=== PATIENT | female | born 1980 | race Two or more races ===

== ENCOUNTER → 2018-12-21 | Outpatient (CLI) | payer BC ==
--- NOTE | 2018-12-21 13:03 | ECHOF ---
Referral Reason:R06.02 SOB, R53.83 Fatigue, R60.0 Edema MEASUREMENTS -------- HEIGHT: 170.2 cm WEIGHT: 85.3 kg BP: 146/85 RVIDd: 2.9 cm (< 3.3) IVSd: 1.0 cm (0.6 - 1.1) LVIDd: 4.4 cm (3.9 - 5.3) LVPWd: 1.1 cm (0.6 - 1.1) IVSs: 1.6 cm LVIDs: 2.9 cm LVPWs: 1.5 cm LA Diam: 3.4 cm (2.7 - 3.8) LAESV Index (A-L): 23.12 ml/m Ao Diam: 2.8 cm (2.0 - 3.7) AV Cusp: 2.0 cm (1.5 - 2.6) MV EXCURSION: 13.818 mm (> 18.000) MV EF SLOPE: 125 mm/s (70 - 150) EPSS: 0.6 cm MV E Kan: 1.20 m/s MV DecT: 107 ms MV A Kan: 0.57 m/s MV E/A Ratio: 2.09 RAP: 5.00 mmHg RVSP: 25.60 mmHg FINDINGS -------- Resting tachycardia (HR>100bpm). This was a technically good study. The left ventricular size is normal. There is borderline concentric left ventricular hypertrophy. Overall left ventricular systolic function is normal with, an EF between 60 - 65 %. The right ventricle is normal in size. Normal LA size by volume 22+/-6 ml/m2. The right atrium is normal in size. Interatrial and interventricular septum intact. The aortic valve is trileaflet and appears structurally normal. Mild mitral regurgitation is present. Mild tricuspid regurgitation present. Right ventricular systolic pressure is normal at < 35 mmHg. Trace/mild (physiologic) pulmonic regurgitation. The aortic root size is normal. Normal inferior vena cava with normal inspiratory collapse consistent with estimated right atrial pre ssure of 5 mmHg. There is no pericardial effusion. CONCLUSIONS -------- 1. Resting tachycardia (HR>100bpm). 2. This was a technically good study. 3. The left ventricular size is normal. 4. There is borderline concentric left ventricular hypertrophy. 5. Overall left ventricular systolic function is normal with, an EF between 60 - 65 %. 6. The right ventricle is normal in size. 7. Normal LA size by volume 22+/-6 ml/m2. 8. The right atrium is normal in size. 9. Interatrial and interventricular septum intact. 10. The aortic valve is trileaflet and appears structurally normal. 11. Mild mitral regurgitation is present. 12. Mild tricuspid regurgitation present. 13. Right ventricular systolic pressure is normal at < 35 mmHg. 14. Trace/mild (physiologic) pulmonic regurgitation. 15. The aortic root size is normal. 16. Normal inferior vena cava with normal inspiratory collapse consistent with estimated right atrial pressure of 5 mmHg. 17. There is no pericardial effusion. TRAINING PROJECT MANAGER: Ruchi Wagner RDCS
== END | disposition home or self-care (01) ==
LOC: RADECHMAIN 11:19
PROVIDERS: ATTEND Family Medicine
DX: I08.1 Rheumatic disorders of both mitral and tricuspid valves (principal)
CPT/HCPCS: 93306

== ENCOUNTER 2019-08-31 14:21 | Emergency (ER) | payer BC ==
[2019-08-31 14:28] VITALS: RESP 18
[2019-08-31] MEDS ORDERED: MORPHINE SULFATE 2 MG/ML SYRINGE IM STA (14:40)
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
--- NOTE | 2019-08-31 15:36 | XR ---
EXAMINATION TYPE: XR lumbar spine 2 or 3V DATE OF EXAM: 08/31/2019 CLINICAL HISTORY: Injury yesterday with pain. TECHNIQUE: Frontal and lateral images of the lumbar spine are obtained. COMPARISON: MRI lumbar spine October 28, 2015. FINDINGS: There are 5 lumbar type vertebral bodies redemonstrated. The lumbar spine redemonstrates postsurgical change with posterior interpedicular rods and screws transfixing L4-S1 levels along with artificial disc material correlating with MRI. Stable slight anterolisthesis L5 on S1. Vertebral bod y heights and disc space heights above the L4 level are satisfactory. No acute fracture or dislocatio n is seen. IMPRESSION: No acute fracture or dislocation is seen in the lumbar spine.
[2019-08-31] MEDS ORDERED: ACET/COD 300 MG/30 MG STARTER PACK 6 TAB BTL PO STA (16:02)
[2019-08-31 16:18] VITALS: BP 142/99; PULSE 97; TEMP 98.2
== END 2019-08-31 16:16 | disposition home or self-care (01) ==
LOC: EC 14:21
DX: S39.012A Strain of muscle, fascia and tendon of lower back, initial encounter (principal); K21.9 Gastro-esophageal reflux disease without esophagitis; Z98.1 Arthrodesis status; Z87.891 Personal history of nicotine dependence; Z79.899 Other long term (current) drug therapy; Z88.8 Allergy status to other drugs, medicaments and biological substances; Z88.6 Allergy status to analgesic agent; Z88.0 Allergy status to penicillin; Z53.29 Procedure and treatment not carried out because of patient's decision for other reasons; V86.99XA Unspecified occupant of other special all-terrain or other off-road motor vehicle injured in nontraffic accident, initial encounter; Y92.410 Unspecified street and highway as the place of occurrence of the external cause
CPT/HCPCS: 72100; 99284; 96372; J2270